=== PATIENT | male | born 1960 | race African-American/Black ===

== ENCOUNTER 2020-10-23 19:31 | Emergency (ER) | payer OTHER ==
[~2020-10-23] VITALS: Ht 177.8 cm; Wt 136.1 kg
[~2020-10-23 19:31] MED LIST: LISINOPRIL10 MG PO; SEROQUEL 50 MG50 MG PO; TRAZODONE HCL100 MG PO
[2020-10-23 20:19] LABS: ABSOLUTE NEUTROPHILS 4.8 thou/uL (1.4-8.2); BASOPHILS 0.5 % (0.0-2.0); EOSINOPHILS 4.8 % (0.0-3.0); HEMATOCRIT 49.6 % (42.0-52.0); MCH 31.8 pg (26.0-34.0); MCHC 34.3 g/dL (28.0-37.0); MCV 92.8 fL (80.0-100.0); MONOCYTES 7.6 % (1.0-8.0); PLATELET COUNT 189 thou/uL (150-400); POLYS 77.1 % (36.0-66.0); RBC 5.35 mil/uL (4.50-6.00); RDW 14.5 % (10.5-14.5); WBC 6.2 thou/uL (4.0-11.0)
[2020-10-23 20:34] LABS: ANION GAP 8 mmol/L (7-16); BUN 9 mg/dL (7-18); CALCIUM 8.6 mg/dL (8.5-10.1); CHLORIDE 105 mmol/L (98-107); CO2 25 mmol/L (21-32); CREATININE 0.9 mg/dL (0.7-1.3); GLUCOSE 92 mg/dL (74-106); POTASSIUM 5.5 mmol/L (3.5-5.1); SODIUM 138 mmol/L (136-145)
[2020-10-23 20:44] LABS: ALBUMIN 3.1 g/dL (3.4-5.0); LIPASE 72 U/L (73-393); SGOT 31 U/L (15-37); SGPT 20 U/L (16-63); TOTAL BILIRUBIN 0.9 mg/dL (0.2-1.0); TOTAL PROTEIN 7.5 g/dL (6.4-8.2); TROPONIN-I <0.06 ng/mL (<0.06)
[2020-10-24 03:17] LABS: URINE BILIRUBIN NEGATIVE (Negative); URINE BLOOD NEGATIVE (Negative); URINE CLARITY CLEAR; URINE COLOR YELLOW; URINE GLUCOSE-RANDOM* NEGATIVE (Negative); URINE KETONES NEGATIVE (Negative); URINE LEUKOCYTES-REFLEX NEGATIVE (Negative); URINE NITRITE-REFLEX NEGATIVE (Negative); URINE PROTEIN (DIPSTICK) TRACE (Negative); URINE SPECIFIC GRAVITY 1.025 (1.005-1.035); URINE UROBILINOGEN >= 8.0 E.U./dl (0.2-1.0)
[2020-10-24 03:39] LABS: AMP/METHAMP Negative (Negative); BARBITURATES Negative (Negative); BENZODIAZEPINES Negative (Negative); COCAINE Negative (Negative); METHADONE Negative (Negative); OPIATES Negative (Negative); PCP POSITIVE (Negative)
[2020-10-24 04:37] VITALS: BP 158/92
--- NOTE | 2020-10-25 07:05 | EKG ---
[place] [address] [facility] [place] [address] ELECTROCARDIOGRAM REPORT Name: LIGIA QUEZADA [id number] Admission: 10/23/20 Attend Phys: Discharge: 10/24/20 Date of : 62 Report #: [id number] [facility] ED Test Date: 2020-10-23 Test Time: 20:23:22 Pat Name: LIGIA QUEZADA Department: Room: Gender: M [employer]: lb : 1960 Requested By: Cierra [place] Order Number: [id number] MD: Cortez Bradford Measurements Intervals [place] Rate: 93 P: 67 CT: 136 QRS: 25 QRSD: 93 T: 46 QT: 361 QTc: 449 Interpretive Statements Sinus rhythm Probable left atrial enlargement Anteroseptal infarct, age indeterminate No previous ECG available for comparison Electronically Signed On 10-25-2020 7:05:43 CDT by Cortez Bradford [email or web address] <ELECTRONICALLY SIGNED> By: Cortez Bradford MD, [facility] 10/25/20704 22 22 Cortez Bradford MD, FACC /EPI
== END 2020-10-24 04:38 | disposition home or self-care (01) ==
LOC: ER 19:31
PROVIDERS: Emergency Medicine
DX: F16.921 Hallucinogen use, unspecified with intoxication with delirium (principal); F19.10 Other psychoactive substance abuse, uncomplicated; I10 Essential (primary) hypertension; F17.210 Nicotine dependence, cigarettes, uncomplicated